=== PATIENT | male | born 1930 | race Caucasian/White ===

== ENCOUNTER 2017-01-10 15:16 | Observation (INO) | payer MEDICARE ==
[2017-01-10] VITALS (7 sets, daily range): BP systolic 109–161; BP diastolic 67–87; PULSE 80–101; RESP 12–21; O2SAT 95–96
[~2017-01-10] VITALS: Ht 167.6 cm; Wt 73.6 kg
[~2017-01-10 15:16] MED LIST: ACET650T46 PO; AMLO10TA3 PO; ASPI-973 PO; CLOP75TA3 PO; DICL75TA6 PO; HYDROcodone-APAP 5-325 PO; LISI10TA PO; OMEP40CA36 PO; POLY17PO6 PO; PRD5T PO; PROC-4 PO; SIMV20TA4 PO; TAMS0.4C98 PO; ZLP10T PO
--- NOTE | 2017-01-10 16:09 | ED.REPORT ---
HPI-General Illness Date of Service Jan 10, 2017 ED Provider: Sandro Penny MD Patient is an 86 year old male with a history of lung cancer, colon cancer, CVA and hypertension who presents to the ED via EMS after a near syncopal event. Associated symptoms include generalized weakness, lightheadedness, dizziness and feeling dehydrated. He denies chest pain, shortness of breath, vision changes, one sided weakness, numbness, nausea, abdominal pain, palpitations or other symptoms. Per EMS, the patient was hypotensive, in the 60's systolic and told him he was dehydrated. The patient reports that he has been drinking less water than usual because it "helps him sleep better" because he normally has to get up to urinate frequently during the night. Nursing Notes Stated Complaint: CHEST PAIN Chief Complaint: General Complaint Nursing Notes Reviewed: Yes Allergies: Coded Allergies: No Known Allergies (Verified Allergy, Unknown, 01/10/17) Scheduled Aspirin (Aspirin) 81 Mg Tablet 81 MG PO DAILY Clopidogrel Bisulfate (Plavix) 75 Mg Tablet 75 MG PO DAILY Doxazosin (Cardura) 4 Mg Tablet 4 MG PO HS Omeprazole (Omeprazole) 40 Mg Capsule.dr 40 MG PO DAILY Prednisone (PredniSONE) 5 Mg Tab 5 MG PO DAILY Simvastatin (Simvastatin) 20 Mg Tablet 20 MG PO HS Tamsulosin (Flomax) 0.4 Mg Capsule 0.4 MG PO HS Scheduled PRN Acetaminophen (Tylenol Arthritis) 650 Mg Tablet.er 1,300 MG PO QAM PRN PRN For Pain oxyCODONE (oxyCODONE) 5 Mg Capsule 5 MG PO BID PRN PRN For Pain General Time Seen by MD: 16:08 Chief Complaint Weakness Hx Obtained From: Patient Arrived By: Helicopter Sudden in Onset?: Yes Onset Occurred: 1 - 4 hours ago Symptom Duration: 1 - 4 hours Severity: Current: No pain currently Similar Sx Previous: No Past Medical History Past Medical History Rheumatoid arthritis Dyslipidemia Prostatism Colon Cancer status post curative partial colectomy in 1993 Lung cancer Distant history of tobacco use Reports: Cancer, Hypertension Past Surgical History Partial colectomy in 1993 Smoking History Former Smoker Social History Alcohol Use: 1-3 per day Drug Use: Denies drug use Ambulatory Status Independent Review of Systems Full Review of Systems Constitutional: Reports: Weakness - generalized, Denies: Chills, Fever Respiratory: Denies: Non-productive cough, Shortness of breath Cardiovascular: Denies: Chest pain, Palpitations GI: Denies: Abdominal pain, Nausea Skin: Denies Itching, Denies Rash Neurologic: Reports: Dizziness, Lightheaded, Denies: Headache, Numbness, Slurred speech, Unable to speak, Vision change, Weakness Complete sys rev & neg: except as marked. Physical Exam Vital Signs Vital Signs Date Time Temp Pulse Resp B/P Pulse Ox O2 Delivery O2 Flow Rate FiO2 01/10/17 15:46 80 12 123/67 95 Room Air Initial VS: Reviewed General/Constitutional: Awake, Alert, No acute distress Head / Eyes: Atraumatic, Normocephalic, PERRL, EOMI Neck: Atraumatic, Supple Respiratory / Chest: Atraumatic, Breath sounds NL, Breath sounds = bilat, No respiratory distress Cardiovascular: Heart rate NL, Regular rhythm, Heart sounds NL, No murmurs Abdomen: Atraumatic, Soft, Non-tender Upper Extremities Upper Extremity / MS: Atraumatic, Full range of motion Lower Extremity / Pelvis / MS: Atraumatic, Full range of motion Skin: Atraumatic, Color NL, No rash, Warm, Dry Neurologic: Oriented X3, Speech NL Psychiatric: Affect NL, Mood NL Interpretation & Diagnostics Lab Results Interpretation Result Diagram: 01/11/17 0550 01/11/17 0550 Test 01/10/17 16:06 01/10/17 16:30 01/10/17 16:34 Magnesium Level 2.1mg/dL (1.6-2.6) Troponin T 0.011ug/L (0.0-0.011) Thyroid Stimulating Hormone (TSH) 0.765uIU/mL (0.450-4.500) Hemoglobin A1c 6.4% (4.8-5.6) Urine Color Yellow (YELLOW) Urine Appearance Clear (CLEAR,HAZY) Urine pH 5.5 (5.0-8.0) Urine Specific [place] 1.010 (1.003-1.035) Urine Protein Negativemg/dL (NEG,TRACE) Urine Glucose (UA) Negativemg/dL (NEGATIVE) Urine Ketones Negativemg/dL (NEGATIVE) Urine Occult Blood Trace (NEGATIVE) Urine Nitrite Negative (NEGATIVE) Urine Bilirubin Negative (NEGATIVE) Urine Urobilinogen Normalmg/dL (NORMAL) Urine Leukocyte Esterase Negative (NEGATIVE) Urine RBC 0-2/hpf (0-2) Urine WBC 0-5/hpf (0-5) Urine Epithelial Cells Few/hpf (NONE-MOD) Urine Crystals None seen (NONE SEEN) Urine Bacteria Few/hpf (NONE-FEW) Urine Hyaline Casts 5/20/lpf (NONE) Urine Granular Casts None seen (NONE SEEN) Urine Waxy Casts None seen (NONE SEEN) Urine Red Blood Cell Casts None seen (NONE SEEN) Urine White Blood Cell Casts None seen (NONE SEEN) Urine Mucus None seen (None Seen) Urine Trichomonas None seen (NONE SEEN) Urine Yeast None (NONE SEEN) Urinalysis Comment None Urine Culture Reflexed Not indicated ECG Interpretation ECG Interpretation: no ST, T changes Time: 16:09 Interpreted by: ED physician Normal ECG Interpretation: Normal rate (73), Normal sinus rhythm X-Ray Chest Interpretation Chest Xray Interpretation: IMPRESSION: 1. Apparently new left midlung field pulmonary nodule. Repeat study is recommended and if finding persists, CT chest imaging recommended. 2. Chronic scarring right middle lobe and lower lobe as before. Minimal pleural effusion/thickening on the right. Dictated by: Kaveh Renae M.D. on 01/10/2017 at 16:09 Approved by: Kaveh Renae M.D. on 01/10/2017 at 16:13 View: Portable, 1 view Interpretation / Wet Read by: Interpret - Radiologist Re-Eval/Medical Decision Med Decision/Clinical Course 86-year-old male presenting after a near syncopal event and systolic blood pressure in the 60s on [facility]. He was airlifted here by the medics. He was given IV fluids in route and his blood pressures are stable on arrival and remained stable in our ER. He felt much better. He did not feel comfortable going home. He will be admitted for near syncope and hypotension. May be related to his blood pressure and BPH medications. He also has an acute kidney injury therefore likely dehydration component. Time of Eval: 16:29 Patient Status: Condition improved Time of Eval: 16:32 Re-Evaluation/Progress Note: Discussed results and plan for admit. Patient understands and agrees to plan. All questions were addressed. Consultation : Referral / Consult Name: Jarad Keith MD Consulted With: Hospitalist Call Returned at: 17:41 Nail Making Machine Setter: Agrees with eval, Agrees with plan, Accepts admit Counseled Regarding: Diagnosis, Lab results, Need for admission Discharge & Departure Primary Impression: Near syncope Additional Impressions: Hypotension Hypotension type: unspecified hypotension type Qualified Code: I95.9 - Hypotension, unspecified Acute kidney injury Disposition: ADMITTED TO HOSPITAL Discharge Condition All VS Reviewed: Yes Condition: Stable Referrals: Dwaine Hickey MD (PCP) Garrett Attestation Portions of this note were transcribed by Fani Salazar. I, Dr. Penny personally performed the history, physical exam and medical decision-making; I reviewed and confirmed the accuracy of the information in the transcribed note. Signed by: Garrett Beatty, 01/10/17. copies to: Dwaine Hickey MD, Ben M MD Jan 10, 2017 16:09 Julissa Salazar Jan 10, 2017 16:32 Urine Epithelial Cells Few/hpf (NONE-MOD) Urine Crystals None seen (NONE SEEN) Urine Bacteria Few/hpf (NONE-FEW) Urine Hyaline Casts 5/20/lpf (NONE) Urine Granular Casts None seen (NONE SEEN) Urine Waxy Casts None seen (NONE SEEN) Urine Red Blood Cell Casts None seen (NONE SEEN) Urine White Blood Cell Casts None seen (NONE SEEN) Urine Mucus None seen (None Seen) Urine Trichomonas None seen (NONE SEEN) Urine Yeast None (NONE SEEN) Urinalysis Comment None Urine Culture Reflexed Not indicated ECG Interpretation ECG Interpretation: no ST, T changes Time: 16:09 Interpreted by: ED physician Normal ECG Interpretation: Normal rate (73), Normal sinus rhythm X-Ray Chest Interpretation Chest Xray Interpretation: IMPRESSION: 1. Apparently new left midlung field pulmonary nodule. Repeat study is recommended and if finding persists, CT chest imaging recommended. 2. Chronic scarring right middle lobe and lower lobe as before. Minimal pleural effusion/thickening on the right. Dictated by: Kaveh Renae M.D. on 01/10/2017 at 16:09 Approved by: Kaveh Renae M.D. on 01/10/2017 at 16:13 View: Portable, 1 view Interpretation / Wet Read by: Interpret - Radiologist Re-Eval/Medical Decision Time of Eval: 16:29 Patient Status: Condition improved Time of Eval: 16:32 Re-Evaluation/Progress Note: Discussed results and plan for admit. Patient understands and agrees to plan. All questions were addressed. Consultation : Referral / Consult Name: Jarad Keith MD Consulted With: Hospitalist Call Returned at: 17:41 Nail Making Machine Setter: Agrees with eval, Agrees with plan, Accepts admit Counseled Regarding: Diagnosis, Lab results, Need for admission Discharge & Departure Primary Impression: Near syncope Additional Impressions: Hypotension Hypotension type: unspecified hypotension type Qualified Code: I95.9 - Hypotension, unspecified Acute kidney injury Disposition: ADMITTED TO HOSPITAL Discharge Condition All VS Reviewed: Yes Condition: Stable Referrals: Dwaine Hickey MD (PCP) Garrett Attestation Portions of this note were transcribed by Fani Salazar. I, Dr. Penny personally performed the history, physical exam and medical decision-making; I reviewed and confirmed the accuracy of the information in the transcribed note. Signed by: Garrett Beatty, 01/10/17. copies to: Dwaine Hickey MD, Ben M MD Jan 10, 2017 16:09 Julissa Salazar Jan 10, 2017 16:32
--- NOTE | 2017-01-10 16:15 | DRSVH ---
PROCEDURE: X-RAY CHEST ONE VIEW, PORTABLE ([id number]) INDICATIONS: near syncope TECHNIQUE: One view of the chest was acquired. COMPARISON: CT chest 10/06/2016, 05/28/2016, 03/08/2016; PET/CT 12/03/2015; chest 05/29/2015 FINDINGS: Surgical changes and devices: None. Lungs and pleura: Small right pleural effusions, no pneumothorax. Right perihilar scar is identified, probably related to prior radiation therapy. There is also persistent atelectasis and bronchiectasis in the right lower lobe posteromedially. A 13 mm nodule is present in the left midlung field lateral ly, not seen on recent CT imaging and therefore of concern for possible neoplasm.. Mediastinum: Mediastinal contours appear normal. Heart size is normal. Bones and chest wall: No suspicious bony lesions. Overlying soft tissues appear unremarkable. IMPRESSION: 1. Apparently new left midlung field pulmonary nodule. Repeat study is recommended and if finding per sists, CT chest imaging recommended. 2. Chronic scarring right middle lobe and lower lobe as before. Minimal pleural effusion/thickening o n the right. Dictated by: Kaveh Renae M.D. on 01/10/2017 at 16:09 Approved by: Kaveh Renae M.D. on 01/10/2017 at 16:13
[2017-01-10 16:19] LABS: BASOPHILS % (AUTO) 0.1 % (0-3); Mean Corpuscular Hemoglobin 29.8 pg (27.0-35.0); Mean Corpuscular Volume 91.9 fL (81-100); NEUTROPHILS % (AUTO) 86.5 % (40-74); Platelet Count 197 bil/L (150-400)
[2017-01-10 16:43] LABS: TROPONIN T 0.011 ug/L (0.0-0.011)
[2017-01-10 16:49] LABS: APPEARANCE,URINE CLEAR (CLEAR,HAZY); COLOR,URINE YELLOW (YELLOW); OCCULT BLOOD,URINE TRACE (NEGATIVE); PH,URINE 5.5 (5.0-8.0); UROBILINOGEN,URINE NORMAL (NORMAL)
[2017-01-10 16:55] LABS: Magnesium 2.1 mg/dL (1.6-2.6)
[2017-01-10] MEDS ORDERED: Alum-Mag Hydrox-Simeth 30 mL Suspension PO PRN ×2 (17:45)
[2017-01-10] MEDS ORDERED: Ondansetron 2 mg/mL 2 mL Inj IVPUSH PRN ×2 (17:45)
[2017-01-10] MEDS ORDERED: Polyethylene Glycol (PEG) 17 Gm Powder PO PRN (17:45)
[2017-01-10] MEDS ORDERED: HYDROcodone-APAP 5-325 mg Tablet PO PRN (18:25)
--- NOTE | 2017-01-10 18:28 | PCM.HPMED ---
Subjective Date of Service Jan 10, 2017 Primary Provider: Admitting Physician: Jarad Keith MD Primary Care Physician: Dwaine Hickey MD Attending Physician: Jarad Keith MD Admit Status: From the Emergency Department, Admit to Green Team Chief Complaint: Near syncopal episode History of Present Illness: Mr. Christopher is a 86-year-old male with past medical history of lung cancer, colon cancer, CVA who presented to ED via EMS ([facility]) from [facility] after a near syncopal event. Patient reports that he had been feeling fine up until this a.m. when he woke up he felt "weak". He got into his car [place] office, states that when he exited his vehicle he still felt very bad and a little bit dizzy like he was going to collapse. While inside the post infantry weapons officer noticed his appearance and called the paramedics. Patient refused to wait for the paramedics getting back into his car and driving 4 miles home while paramedics followed him home and evaluated him there where they found he had a systolic blood pressure in the 60s and [facility] was called for transport . Patient states that he has felt dehydrated over the last few days and has decreased his water intake as he has been having to get up to urinate frequently during the night. He states that last night he had a good night sleep because he did not have to get up frequently to urinate. Patient denies chest pain, shortness of breath, abdominal pain, nausea vomiting , fever/chills, headache, visual disturbances, numbness or tingling in his extremities. In the ED patient's blood pressure was normotensive 120s over 60s, pulse rate 80 respiratory rate 12 satting well on room air. No interventions were done. Chest x-ray showed a new left midlung field pulmonary nodule. Review of Systems: A comprehensive review of systems was conducted with the patient and found to be negative except as above in the history of present illness. Allergies Coded Allergies: No Known Allergies (Verified Allergy, Unknown, 08/12/15) Home Medications Scheduled Amlodipine (Amlodipine) 10 Mg Tablet 10 MG PO DAILY Aspirin (Aspirin) 81 Mg Tablet 81 MG PO DAILY Clopidogrel Bisulfate (Plavix) 75 Mg Tablet 75 MG PO DAILY Diclofenac ER (Diclofenac ER) 75 Mg Tablet 75 MG PO BID Lisinopril (Lisinopril) 10 Mg Tablet 10 MG PO BID Omeprazole (Omeprazole) 40 Mg Capsule.dr 40 MG PO BID Polyethylene Glycol 3350 (Miralax) 17 Gm Powd.pack 17 GM PO prn Prednisone (PredniSONE) 5 Mg Tab 5 MG PO DAILY Prochlorperazine Maleate (Compazine) 10 Mg Tablet 10 MG PO q4hrs prn Simvastatin (Simvastatin) 20 Mg Tablet 20 MG PO HS Tamsulosin (Flomax) 0.4 Mg Capsule 0.4 MG PO HS Scheduled PRN ([HYDROcodone-APAP 5-325]) 1 TABLET TABLET 1 TABLET PO Q4H PRN PRN For Moderate Pain Acetaminophen Extended Release (Tylenol Arthritis Pain Extended-Release) 650 Mg Tablet.er 3 TAB PO QAM PRN PRN For Pain Zolpidem (Ambien) 10 Mg Tablet 10 MG PO HS PRN PRN For Insomnia PMH Rheumatoid arthritis Dyslipidemia Prostatism Colon Cancer status post curative partial colectomy in 1993 Lung cancer Distant history of tobacco use Reports: Cancer, Hypertension Surgical History Partial colectomy in 1993 Appendectomy as a child Family History Father of EtOH abuse complications age 63 Mother past age 92 old age Social History Hx Alcohol Use: Yes (occasional use) Hx Substance Use: No Hx Tobacco Use: Yes Smoking Status: Former Smoker (quit 1972) Living Arrangement: with Family Exam Vital Signs Vital Sign - Last Date Time Temp Pulse Resp B/P Pulse Ox O2 Delivery O2 Flow Rate FiO2 01/10/17 15:46 80 12 123/67 95 Room Air Exam General: Awake and alert sitting up in ER hospital bed in no acute distress, well-developed, well-nourished, appropriately interactive HEENT: Normocephalic, atraumatic. External ears without defect. Pupils equal, round, and reactive to light and accommodation. Anicteric sclerae, moist conjunctivae, and no lid lag. Moist mucosa. Right lower face facial droop chronic from previous CVA Neck: Supple with full range of motion. No jugular venous distension. No bruits. Cardiovascular: Regular rate and rhythm with no murmurs, rubs, or gallops appreciated Pulmonary: Clear to auscultation bilaterally with no crackles, wheezes, or rhonchi. Normal respiratory effort with no use of accessory muscles. Abdomen: Bowel tones present. Soft, nontender, nondistended. Extremities: No clubbing, cyanosis, edema Skin: Normal temperature, turgor, and texture Neurological: Cranial nerves grossly intact. Psychiatric: Normal mood and affect. Alert and oriented to person, place, and time. Lab and Diagnostics Result Diagram: 01/10/17 1606 01/10/17 1606 X-Rays, CTs and MRIs . X-RAY CHEST ONE VIEW, PORTABLE IMPRESSION: 1. Apparently new left midlung field pulmonary nodule. Repeat study is recommended and if finding persists, CT chest imaging recommended. 2. Chronic scarring right middle lobe and lower lobe as before. Minimal pleural effusion/thickening on the right. Dictated by: Kaveh Renae M.D. on 01/10/2017 Assessment & Plan Mr. Christopher is a 86-year-old male with past medical history of lung cancer, colon cancer, CVA who presented to ED via EMS ([facility]) from [facility] after a near syncopal event. Admitted for further workup Near-syncope. Present on admission. Under evaluation Most likely secondary to dehydration, poor oral intake Reported to have SBP in the 60s in the field Vital signs remain stable Telemetry Echo pending Carotid ultrasound pending Orthostatics IV fluids 100 mL per hour Held home hypertensive medications Acute kidney injury. Present on admission. Ongoing Creatinine 1.72 on admission most likely secondary to poor oral fluid intake IV fluids as above Continue to monitor Hypertension. Not present on admission. Presumed stable Hold home meds, restart when hemodynamically appropriate History of lung cancer. Present on admission. Ongoing CXR showed Apparently new left midlung field pulmonary nodule. Repeat study is recommended and if finding persists, CT chest imaging recommended. Recommend follow-up as outpatient Dyslipidemia. Presently on admission. Ongoing Restart home simvastatin Rheumatoid arthritis Restart home pain medication Benign prostatic hyperplasia. Present on admission. Ongoing Continue home Flomax Disposition: Admitted under observational status for further syncopal workup. Pain Evaluation: Adequate Pain Control GI Prophylaxis: H2 joseph VTE Prophylaxis: Sub-Q Heparin (Unfractionated) Resuscitation Status: DNR/DNI:Do Not Resuscitate/Intubate BRI MOREL DO Jan 10, 2017 18:27
--- NOTE | 2017-01-10 19:40 | NUR ---
Admission Note Pt admitted to [facility] from ER at 1915 per day shift report. Alert and orientedx3, denies any pain, SOB, nausea,vomiting,fever or chills. Denies dizziness or vertigo when ambulated to at this time, but unsteady gait noted. Lung sounds clear, HR regular, S1 S2 distant, no murmur.Tele report at 193: ST 120-125 while pt sitting at the edge of bed eating, HR back to 95 after resting in bed for a few minutes. BP148/87. Pt denies any palpitation or discomfort.Swing MD Green paged, called back: will order Lisinopril. Abdomen soft, non tender, last MB yesterday states some "constipation", no edema at all extremities. NS 100ml/hr administered, pt oriented to call light, [place] alarm on. Care ongoing.
[2017-01-10] MEDS: 0.9% Sodium Chloride 1,000 ML IV SCH (20:21)
[2017-01-10] MEDS ORDERED: OXYC5CAP4 PO (20:45)
[2017-01-10] MEDS ORDERED: LISI10TA PO (20:45)
[2017-01-10] MEDS ORDERED: DOXA4TAB2 PO (20:45)
[2017-01-10] MEDS ORDERED: ACET-2766 PO (20:45)
[2017-01-10] MEDS ORDERED: OMEP40CA36 PO (20:45)
--- NOTE | 2017-01-10 21:35 | DRSVH ---
PROCEDURE: US BILATERAL DUPLEX DOPPLER IMAGING OF THE CAROTIDS ([id number]) INDICATIONS: Near Syncope TECHNIQUE: Color and pulse Doppler interrogation was performed of both carotid systems, with image documentation and velocity measurements. COMPARISON: None. FINDINGS: Stenosis calculations are based on SRU (Society of Radiologists in Ultrasound) criteria. Right side: Brachial blood pressure: 148/87 mm Hg. Common carotid artery peak systolic velocity: 75 cm/sec. Internal carotid artery peak systolic velocity: 66 cm/sec. Internal carotid artery end diastolic velocity: 14 cm/sec. External carotid artery peak systolic velocity: 72 cm/sec. ICA/CCA peak systolic ratio: 1.2. Friedman scale imaging description: Mild plaque. Percent internal carotid artery stenosis: Less than 50%. Vertebral artery: Flow direction is antegrade. Left side: Brachial blood pressure: Not obtained Common carotid artery peak systolic velocity: 47 cm/sec. Internal carotid artery peak systolic velocity: 48 cm/sec. Internal carotid artery end diastolic velocity: 16 cm/sec. External carotid artery peak systolic velocity: 64 cm/sec. ICA/CCA peak systolic ratio: 1.0. Friedman scale imaging description: Mild plaque Percent internal carotid artery stenosis: Less than 50%. Vertebral artery: Flow direction is antegrade. IMPRESSION: Less than 50% stenosis of the internal carotid arteries bilaterally. Dictated by: Cristina Antunez M.D. on 01/10/2017 at 21:33 Approved by: Cristina Antunez M.D. on 01/10/2017 at 21:34
[2017-01-10] MEDS: Heparin 5,000 Unit/mL Inj SUBQ SCH (23:42)
--- NOTE | 2017-01-11 02:20 | NUR ---
Sinus prasad Tele report at 212: Sinus prasad 39-44, last 3-4s,then back to SR 80s,asymptomatic, pt sleeping. Dr. Tucker paged at 219. No order given. Another episode at 221:SB 30S, last 10s,then back to 90s, pt still sleeping. Continue monitoring closely. Addendum: 01/11/17 at 0305 by CALIXTO LEPE RN Tele report: newly onset 2nd AVB (Type 1) started around 214, 2 episodes of SB 30s,last up to 10s. Currently SR 70s. Pt asymptomatic, denies chest pain or pressure,or syncope, sleeping during the episodes. BP157/78,stable,HR87, RR16, SPO2 95% on RA, T36.4. Dr. Tucker paged again at 247, no order given,no need start EKG, "just watch it" per . Charge nurse Farhana Kang informed. Continue monitoring.
[2017-01-11 02:57] VITALS: BP 157/78; PULSE 87; RESP 16; O2SAT 95
[2017-01-11] MEDS: 0.9% Sodium Chloride 1,000 ML IV SCH (06:02)
[2017-01-11 06:21] LABS: BASOPHILS % (AUTO) 0.3 % (0-3); EOSINOPHILS % (AUTO) 3.8 % (0-5); MONOCYTES % (AUTO) 11.7 % (4-12); Mean Corpuscular Hemoglobin 29.8 pg (27.0-35.0); Mean Corpuscular Volume 91.3 fL (81-100); NEUTROPHILS % (AUTO) 71.7 % (40-74); Platelet Count 199 bil/L (150-400)
[2017-01-11] MEDS: Heparin 5,000 Unit/mL Inj SUBQ SCH (08:15)
[2017-01-11 08:36] VITALS: BP 130/81; PULSE 115; RESP 18; O2SAT 95
[2017-01-11 08:59] VITALS: PULSE 99
--- NOTE | 2017-01-11 09:12 | NUR ---
Social Work-initial assessment/readiness for discharge: Data:See initial assessment. Pt is a 86 y/o male who was admitted on 01/10/17 for near syncope per H&P. Pt's insurance is [employer] and PCP is Dwaine Hickey MD. EMR reviewed. SW met with pt at bedside, SW role explained. Pt is alert and oriented x3. Pt resides at home with his on [facility] where he remains independent with ADLs. Pt drives and does not use any DME. Pt has no HH or SNF history. Pt has no alf care insurance or VA benefits. SW discussed DPOA/ advanced directive, pt confirms he has completed this, SW encouraged pt to bring a copy into the hospital. No concerns noted around pt's capacity for self care from RN or Md. SW provided pt with discharge planning checklist and encouraged pt to call with any questions, phone number provided on white board in room. Pt states his daughter is flying in today and his does not drive. Pt states he may need to take a taxi to [facility] in [place] if he discharges today. SW will provide pt with priority boarding ferry pass. No other SW needs identified. SW will continue to follow if needs arise. Assessment:Pt who is independent at baseline. Plan:Pt to discharge home when medically stable via POV. SW will provide pt with priority boarding ferry pass. No other SW needs identified. SW will continue to follow if needs arise. GENARO Samuels Addendum: 01/11/17 at 0917 by NAKUL SANTA Amended: Links added.
--- NOTE | 2017-01-11 10:41 | PCM.DIMED ---
Discharge Instructions Date of Service Jan 11, 2017 Dates of Hospitalization Jan 10, 2017 at 17:49 Discharge Diagnosis Discharge Diagnosis Dehydration ALLYSSA Hypotension Medication Instructions Additional med instructions BP meds being held for now. Monitor bp at home before the visit to pcp , if systolic> 150, please take lisinopril home dose Diet Discharge Diet: Heart Healthy Call your provider Call your provider for: Fever or Chills, Excessive diarrhea, Weakness ( unilateral) Patient Instructions Follow-up plan Feb 18 Dr. Benavidez Follow-up with PCP in: 1 week (reevaluation of HTN meds ) Jarad Keith MD Jan 11, 2017 10:41
--- NOTE | 2017-01-11 11:06 | PCM.DC.MED ---
Discharge Summary Date of Service Jan 11, 2017 Dates of Hospitalization Date of Hospital Admission Jan 10, 2017 at 17:49 Date of Discharge: Jan 11, 2017 Providers: Admitting Physician: Jarad Keith MD Primary Care Physician: Dwaine Hickey MD Attending Physician: Jarad Keith MD Diagnosis at Time of Discharge Diagnosis at Time of Discharge Dehydration ALLYSSA Hypotension Procedures XRay, CTs & MRIs . X-RAY CHEST ONE VIEW, PORTABLE IMPRESSION: 1. Apparently new left midlung field pulmonary nodule. Repeat study is recommended and if finding persists, CT chest imaging recommended. 2. Chronic scarring right middle lobe and lower lobe as before. Minimal pleural effusion/thickening on the right. Dictated by: Kaveh Renae M.D. on 01/10/2017 Other Diagnostics Carotid dopplers IMPRESSION: Less than 50% stenosis of the internal carotid arteries bilaterally. Brief History Mr. Christopher is a 86-year-old male with past medical history of lung cancer, colon cancer, CVA who presented to ED via EMS (backstitch) from [facility] after a near syncopal event. Patient reports that he had been feeling fine up until this a.m. when he woke up he felt "weak". He got into his car and drove to the post office, states that when he exited his vehicle he still felt very bad and a little bit dizzy like he was going to collapse. While inside the post unarmed security officer noticed his appearance and called the paramedics. Patient refused to wait for the paramedics getting back into his car and driving 4 miles home while paramedics followed him home and evaluated him there where they found he had a systolic blood pressure in the 60s and [facility] was called for transport . Patient states that he has felt dehydrated over the last few days and has decreased his water intake as he has been having to get up to urinate frequently during the night. He states that last night he had a good night sleep because he did not have to get up frequently to urinate. Patient denies chest pain, shortness of breath, abdominal pain, nausea vomiting , fever/chills, headache, visual disturbances, numbness or tingling in his extremities. In the ED patient's blood pressure was normotensive 120s over 60s, pulse rate 80 respiratory rate 12 satting well on room air. No interventions were done. Chest x-ray showed a new left midlung field pulmonary nodule. Hospital Course Mr. Christopher is a 86-year-old male with past medical history of lung cancer, colon cancer, CVA who presented to ED via EMS (backstitch) from [facility] after a near syncopal event. Admitted for further workup Near-syncope. Present on admission. Resolved Most likely secondary to dehydration, poor oral intake Reported to have SBP in the 60s in the field Vital signs remain stable Carotid ultrasound noted above hold home antihypertensives, patient has been normotensive off them, pcp to reevaluate meds Acute kidney injury. Present on admission. resolved Creatinine 1.72 trended down to normal Hypertension. Not present on admission. Presumed stable Hold home meds, restart when hemodynamically appropriate History of lung cancer. Present on admission. Ongoing CXR showed Apparently new left midlung field pulmonary nodule. Patient has a follow up with Dr. Reema Mckinney. Presently on admission. Ongoing Restart home simvastatin Rheumatoid arthritis Restart home pain medication Benign prostatic hyperplasia. Present on admission. Ongoing Continue home Flomax Exam Vital Signs (Last) Date Time Temp Pulse Resp B/P Pulse Ox O2 Delivery O2 Flow Rate FiO2 01/11/17 08:59 99 01/11/17 08:36 36.4 18 130/81 95 Room Air Test 01/10/17 16:06 01/10/17 16:30 01/10/17 16:34 01/10/17 22:39 Magnesium Level 2.1mg/dL (1.6-2.6) Troponin T 0.011ug/L (0.0-0.011) Thyroid Stimulating Hormone (TSH) 0.765uIU/mL (0.450-4.500) Hemoglobin A1c 6.4% (4.8-5.6) Urine Color Yellow (YELLOW) Urine Appearance Clear (CLEAR,HAZY) Urine pH 5.5 (5.0-8.0) Urine Specific [place] 1.010 (1.003-1.035) Urine Protein Negativemg/dL (NEG,TRACE) Urine Glucose (UA) Negativemg/dL (NEGATIVE) Urine Ketones Negativemg/dL (NEGATIVE) Urine Occult Blood Trace (NEGATIVE) Urine Nitrite Negative (NEGATIVE) Urine Bilirubin Negative (NEGATIVE) Urine Urobilinogen Normalmg/dL (NORMAL) Urine Leukocyte Esterase Negative (NEGATIVE) Urine RBC 0-2/hpf (0-2) Urine WBC 0-5/hpf (0-5) Urine Epithelial Cells Few/hpf (NONE-MOD) Urine Crystals None seen (NONE SEEN) Urine Bacteria Few/hpf (NONE-FEW) Urine Hyaline Casts 5/20/lpf (NONE) Urine Granular Casts None seen (NONE SEEN) Urine Waxy Casts None seen (NONE SEEN) Urine Red Blood Cell Casts None seen (NONE SEEN) Urine White Blood Cell Casts None seen (NONE SEEN) Urine Mucus None seen (None Seen) Urine Trichomonas None seen (NONE SEEN) Urine Yeast None (NONE SEEN) Urinalysis Comment None Urine Culture Reflexed Not indicated Hold Urine Received (Received) Test 01/11/17 05:50 White Blood Count 6.3th/mm3 (3.8-10.1) Red Blood Count 4.49mil/mm3 (4.40-5.80) Hemoglobin 13.4g/dL (13.8-17.2) Hematocrit 41.0% (41.0-50.0) Mean Corpuscular Volume 91.3fL (81-100) Mean Corpuscular Hemoglobin 29.8pg (27.0-35.0) Mean Corpuscular Hemoglobin Concent 32.7% (32.0-37.0) Red Cell Distribution Width 14.8% (12.3-15.4) Platelet Count 199bil/L (150-400) Neutrophils (%) (Auto) 71.7% (40-74) Lymphocytes (%) (Auto) 12.3% (14-46) Monocytes (%) (Auto) 11.7% (4-12) Eosinophils (%) (Auto) 3.8% (0-5) Basophils (%) (Auto) 0.3% (0-3) Sodium Level 146mEq/L (134-144) Potassium Level 3.6mEq/L (3.5-5.2) Chloride Level 108mEq/L (97-108) Carbon Dioxide Level 23mmol/L (18-29) Blood Urea Nitrogen 30mg/dL (8-27) Creatinine 1.11mg/dL (0.76-1.27) Estimat Glomerular Filtration Rate 67mL/min (>59) Glucose Level 88mg/dL (60-99) Calcium Level 8.3mg/dL (8.5-10.1) Total Bilirubin 0.3mg/dL (0.0-1.2) Aspartate Amino Transf (AST/SGOT) 17U/L (0-50) Alanine Aminotransferase (ALT/SGPT) 14U/L (0-44) Alkaline Phosphatase 64U/L (25-160) Total Protein 6.5g/dL (6.4-8.4) Albumin 3.9g/dL (3.4-5.0) Discharge Medications Discharge Medications Aspirin (Aspirin) 81 Mg Tablet 81 MG PO DAILY (Reported) Clopidogrel Bisulfate (Plavix) 75 Mg Tablet 75 MG PO DAILY Prescribed by: AMANDA PALACIOS MD Doxazosin (Cardura) 4 Mg Tablet 4 MG PO HS (Reported) Omeprazole (Omeprazole) 40 Mg Capsule.dr 40 MG PO DAILY (Reported) Prednisone (PredniSONE) 5 Mg Tab 5 MG PO DAILY (Reported) Simvastatin (Simvastatin) 20 Mg Tablet 20 MG PO HS (Reported) Tamsulosin (Flomax) 0.4 Mg Capsule 0.4 MG PO HS (Reported) As needed Acetaminophen (Tylenol Arthritis) 650 Mg Tablet.er 1,300 MG PO QAM PRN PRN For Pain (Reported) oxyCODONE (oxyCODONE) 5 Mg Capsule 5 MG PO BID PRN PRN For Pain (Reported) Additional med instructions BP meds being held for now. Monitor bp at home before the visit to pcp , if systolic> 150, please take lisinopril home dose Followup Plan Follow-up plan Feb 18 Dr. Benavidez Discharge Diet: Heart Healthy Follow-up with PCP in: 1 week (reevaluation of HTN meds ) Time spent 35 mins Jarad Keith MD Jan 11, 2017 11:05
--- NOTE | 2017-01-11 11:55 | NUR ---
Social Work-discharge: Data:EMR reviewed. Pt is on day 1 of hospitalization for near syncope per H&P. Pt is medically stable for discharge. SW spoke with pt's friend Kareen who has arranged [place] 1330 [place] ferry and their neighbor will pick pt up at the ferry [place] on [facility]. Pt has been up independent in his room. No discharge needs identified. All updated and agreeable to plan. Assessment:Pt who is independent at baseline. Plan:Pt to discharge home today via private pay taxi and ferry. No discharge needs identified. All updated and agreeable to plan. GENARO Samuels
--- NOTE | 2017-01-11 12:16 | NUR ---
Case Management- BARRIGA explained and signed/timed by patient. Joanne Cm RN, CCM
--- NOTE | 2017-01-11 13:15 | NUR ---
Discharge Pt discharge home to [facility] by way of Taxi to [facility]. Pt A/O x 4, verbalized understanding of discharge and follow up instructions, no new medications were prescribed. Pt's personal belongings accounted for and left with pt, pt opted to walk out and was escorted.
--- NOTE | 2017-01-11 16:47 | DRSVH ---
[facility] [address] [place] [address] Echocardiogram Report Name: YVETTE CASTANEDA MStudy Date : 01/11/2017 Height: 66 in Hospital Exam Location: [facility] Weight: 162 lb Gender: Male BSA: 1.8 m2 : 1930 Age: 86 yrs BP: 157/78 mmHg Reason For Study: Syncope Ordering Physician: HOSPITALIST [facility] Performed By: Yadi Shepherd Referring Physician: Javid Beck Interpretation Summary The study quality was technically limited. The left ventricular ejection fraction is grossly normal. Right ventricular systolic function is borderline reduced. The aortic valve is not well visualized. There is no hemodynamically significant valvular aortic stenosis. Procedure: A two-dimensional transthoracic echocardiogram with color flow and Doppler was performed. The study quality was technically limited. Comparison is made with the echocardiogram of 06/01/2015. The heart rate ranged between 84-97 bpm during the study. Left Ventricle: The left ventricle is normal in size. There is normal left ventricular wall thickness. The left ventricular ejection fraction is grossly normal. No obvious wall motion abnormalities. Right Ventricle: The right ventricle is normal size. Right ventricular systolic function is borderline reduced. Atria: The left atrium grossly appears normal in size. The right atrium grossly appears normal in size. The interatrial septum is intact with no evidence for an atrial septal defect. Mitral Valve: The mitral valve is normal in structure and function. There is no mitral regurgitation noted. Aortic Valve: The aortic valve opens well. The aortic valve is trileaflet. The aortic valve is not well visualized. There is no hemodynamically significant valvular aortic stenosis. There is trace aortic regurgitation. Tricuspid Valve: The tricuspid valve is normal in structure and function. No tricuspid regurgitation. Pulmonic Valve: The pulmonic valve is not well visualized. There is no pulmonic valvular regurgitation. Great Vessels: The aortic root is normal size. The ascending aorta is normal in size. The aortic arch could not be visualized. The pulmonary artery is normal size. The IVC is of normal diameter and collapses greater than 50% with a sniff. This suggests a low right atrial pressure of 3 mm Hg. Pericardium/ Pleura There is an anterior echo-free space consistent with a fat pad. There is no pericardial effusion. There is no pleural effusion. MMode/2D Measurements & Calculations LVIDd: 4.4 cm LA A4 area LVOT diam LV mina. diameter/BSA LVIDs: 3.2 cm (cm/m^2): 2.4 FS: 26.9 % AoV Opening EPSS: 1.7 cm LA length IVSd: 0.98 cm (vol): 5.3 cm Ao root diam LVPWd: 0.98 cm IVC diam : 1.6 cm asc Aorta Diam: 3.1 cm LV sys. diameter/BSA RVD1 (basal) TAPSE: 1.6 cm (cm/m^2): 1.7 Doppler Measurements & Calculations Ao V2 max MV E max blair MV E/A: 0.39 TR max blair : 131.8 cm/sec : 33.5 cm/sec : 212.9 cm/sec Ao max PG MV A max blair TR max PG : 7.0 mmHg : 84.9 cm/sec : 18.1 mmHg Ao mean PG MV P1/2t: 44.0 msec PA V2 max : 96.4 cm/sec LVOT Max Blair PA mean PG : 79.1 cm/sec : 2.0 mmHg SADI(I,D): 2.3 cm sev ratio MV dec time MV P1/2t max blair Ao V2 mean LV V1 max PG : 0.15 sec : 104.8 cm/sec MVA(P1/2t): 5.0 cm2 Ao V2 VTI LV V1 VTI : 15.1 cm SADI(V,D): 2.4 cm2 PA V2 mean SADI indexed to BSA : 66.1 cm/sec (cm^2/m^2): 1.2 Electronically signed by: Ramesh Kim on Reading Physician:01/11/2017 04:46 PM
== END 2017-01-11 13:28 | disposition home or self-care (01) ==
LOC: SED 15:16 → EDBD 15:16 → MPC 17:49
PROVIDERS: ADMIT Internal Medicine; ATTEND Internal Medicine
DX: E86.0 Dehydration (principal); N17.9 Acute kidney failure, unspecified; I95.9 Hypotension, unspecified; I10 Essential (primary) hypertension; R55 Syncope and collapse; E78.5 Hyperlipidemia, unspecified; M06.9 Rheumatoid arthritis, unspecified; N40.0 Benign prostatic hyperplasia without lower urinary tract symptoms; Z86.73 Personal history of transient ischemic attack (TIA), and cerebral infarction without residual deficits; Z85.118 Personal history of other malignant neoplasm of bronchus and lung; Z87.891 Personal history of nicotine dependence; Z85.038 Personal history of other malignant neoplasm of large intestine; Z79.82 Long term (current) use of aspirin; Z79.52 Long term (current) use of systemic steroids; Z66 Do not resuscitate
CPT/HCPCS: 36415; 71010; 80053; 81000; 83036; 83735; 84443; 84484; 85025; 93005; 93880; 99285; C8929; G0378; J1644; J7030